=== PATIENT | female | born 1955 | race Caucasian/White ===

== ENCOUNTER 2017-07-18 05:42 | Day surgery (SDC) | payer OTHER ==
--- NOTE | 2017-07-18 06:01 | HP ---
DATE OF ADMISSION: 07/18/2017 HISTORY OF PRESENT ILLNESS: This is a 62-year-old female with dysuria recently. This happ ens off and on. Around s, she had a meat impaction. She had an EGD at [place], [place] to have the meat piece removed. The patient has had dysphagia to solid food off and on. The patient comes in for EGD evaluation because of dysphagia and recent diagnosis of esophageal stricture . ALLERGIES: CODEINE, DEMEROL, SULFA. ALLERGIC TO BLEACH. MEDICAL ILLNESSES: 1. Esophageal stricture. 2. Recent foreign body impaction of esophagus. 3. Hypertension. 4. Hyperlipidemia. 5. Chronic allergies. PHYSICAL EXAMINATION: VITAL SIGNS: Pulse is 70, blood pressure 130/80. HEENT: Conjunctivae clear. CARDIOVASCULAR SYSTEM: Within normal limits. ABDOMEN: Soft to palpate. No organomegaly. No tenderness. No masses. ADMITTING DIAGNOSES: Dysphagia, recent foreign body impaction. PLAN: Esophagogastroduodenoscopy and dilation.
--- NOTE | 2017-07-18 09:02 | OP ---
DATE OF PROCEDURE: 07/18/2017 SURGEON: Ryan Salazar M.D. OPERATIVE PROCEDURE: 1. Esophagogastroduodenoscopy. 2. Balloon dilation to stage 3. 3. 52-Sammarinese Gaytan dilator passed down without any resistance. PREOPERATIVE DIAGNOSES: Dysphagia, recent foreign body impaction a month ago. POSTOPERATIVE DIAGNOSES: 1. No esophagitis seen. The mucosa appeared normal. 2. Distal esophageal ring with intact mucosa. 3. Retained food material in the stomach and also in the duodenal bulb. 4. Gastric polyps appeared benign. PROCEDURE IN DETAIL: The patient was placed on her left lateral position and was given sedation by the Anesthesia Department. A Pentax video gastroscope under direct vision was passed down the oropharynx, past the gastroesophageal junction, into the stomach. The vocal cords appeared healthy. The esophageal mucosa appeared normal throughout the esophagus. The patient had no definite esophageal narrowing. She does have a distal esophageal ring appears wide open. The scope was advanced down without difficulty. Retroflexion failed to show any lesions in the fundus or cardia. She had multiple small gastric polyps over the fundus and greater curvature and gastric body. She had retained food material after overnight fasting. The gastric antrum, no pathology seen. The pylorus was wide open. The scope was advanced into the duodenal bulb that showed some retained food material and the scope could not be advanced into the descending duodenum. The scope was carefully withdrawn back to the GE junction. Again, examination does not show definite narrowing. A Bard balloon size 15-18 mm was placed in the GE junction and inflated to stage I to3 for 30 seconds and to stage II for another 2 minutes. However, the balloon can be traversed back and forth across the GE junction without any difficulty. The balloon was inflated to stage III, was brought across the GE junction without difficulty. The balloon and the scope removed. A 52-Sammarinese Gaytan dilator was passed down with no resistance. The patient was rescoped again There was friability and mild oozing of blood in the GE junction noted . The stomach was decompressed and the scope removed. DISCHARGE PLANNING: This is a 62-year-old female with a history of dysphagia to solid food off and on. She had an episode of meat impaction in 2016 and had to come to the ER and had EGD and removal of meat piece. The patient underwent EGD. The EGD did not show any stricture, it did show a ring. The ring is not tight. The balloon was inflated to stage III and brought across the GE junction without difficulty. Subsequently, she underwent Gaytan dilation with a 52-Sammarinese in diameter. The patient did well post procedure, and is being discharged home. DISCHARGE RECOMMENDATIONS: 1. The patient was advised to call me if she develops any chest discomfort, fever, melena or hematemesis. 2. Continue proton-pump inhibitor. 3. To come back to the clinic early next week. JUDITH
[2017-07-18] MEDS ORDERED: Lidocaine 1% PF 5 ML VIAL ONE (12:33)
== END 2017-07-18 08:45 | disposition home or self-care (01) ==
LOC: SDC 05:42
PROVIDERS: ATTEND Internal Medicine Gastroenterology
PROC: 0D748ZZ Dilation of Esophagogastric Junction, Via Natural or Artificial Opening Endoscopic (ICD-10-PCS; principal; 2017-07-18)
DX: K22.2 Esophageal obstruction (principal); R13.10 Dysphagia, unspecified; K31.7 Polyp of stomach and duodenum; I10 Essential (primary) hypertension; E78.5 Hyperlipidemia, unspecified; K21.9 Gastro-esophageal reflux disease without esophagitis; D68.51 Activated protein C resistance; Z88.8 Allergy status to other drugs, medicaments and biological substances; Z91.048 Other nonmedicinal substance allergy status; Z83.3 Family history of diabetes mellitus; Z82.49 Family history of ischemic heart disease and other diseases of the circulatory system; Z90.710 Acquired absence of both cervix and uterus; Z90.12 Acquired absence of left breast and nipple; Z98.890 Other specified postprocedural states

== ENCOUNTER 2019-09-11 05:44 | Day surgery (SDC) | payer OTHER ==
[2019-09-10 09:33] VITALS: BMI 28.0
[2019-09-11] MEDS ORDERED: Thrombin 5000 UNITS/5 ML VIAL ONE (06:10)
[2019-09-11] MEDS ORDERED: Lidocaine 2% Jelly 5 ML TUBE ONE (06:32)
[2019-09-11] MEDS ORDERED: Fentanyl 100 MCG/2 ML VIAL ONE ×4 (06:32→08:59)
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
[2019-09-11] MEDS ORDERED: Promethazine HCl 25 MG/ML VIAL ONE ×2 (07:31→08:42)
[2019-09-11] MEDS ORDERED: Ketorolac Tromethamine 30 MG/ML VIAL ONE (10:02)
[2019-09-11] MEDS ORDERED: Dexamethasone 20 MG/5 ML VIAL ONE (10:02)
[2019-09-11] MEDS ORDERED: Rocuronium Bromide 10 MG/ML (10ML VIAL) ONE (10:02)
[2019-09-11] MEDS ORDERED: Lidocaine 1% PF 5 ML VIAL ONE (10:02)
[2019-09-11] MEDS ORDERED: EPHEDRINE 25 MG/5 ML SYRINGE ONE (10:02)
[2019-09-11] MEDS ORDERED: PROPOFOL 200 MG/20 ML VIAL ONE (10:02)
[2019-09-11] MEDS ORDERED: Ondansetron PF 4 MG/2 ML Vial ONE (10:02)
[2019-09-11] MEDS ORDERED: Glycopyrrolate 0.2 MG/ML 5 ML SYRINGE ONE (10:02)
--- NOTE | 2019-09-11 10:05 | OP ---
DATE OF PROCEDURE: 09/11/2019 PATTERN ATTENDANT: José Miguel Guzmán PA-C INDICATION: Pain. DIAGNOSIS: Cervical radiculopathy. PROCEDURE PERFORMED: Anterior cervical diskectomy and fusion, C6-C7. ANESTHESIA: General. DESCRIPTION OF PROCEDURE: The patient was brought into the operating room and placed under general anesthesia. She was placed on table in a supine position. A transverse incision was planned over the lateral aspect of the neck on the right. After prepping and draping and after an appropriate operative pause, the incision was created. The underlying platysma muscle was identified and incised. A blunt tissue plane anterior to the sternocleidomastoid muscle was used to gain access to the prevertebral space. Self-retaining retractors were placed in the wound for optimal exposure. After confirming the appropriate level with C-arm fluoroscopy, an annulotomy was performed at the C6-C7 disk space. All disk material as well as anterior and posterior osteophytes were removed. After decompressing the C6-C7 segment, a 7-mm lordotic PEEK cage packed with allograft and autograft material was placed in the interbody space. An anterior cervical plate was then fashioned in front of the spine and secured with a total of 4 fixed screws. Midline and lateral structures were inspected and found to be free from significant trauma. The wound was irrigated. Hemostasis was maintained throughout. The wound was then closed in anatomic layers and a pressure dressing was applied. There were no known procedural complications. Job ID: [id number]
== END 2019-09-11 12:00 | disposition home or self-care (01) ==
LOC: SDC 05:44
PROVIDERS: ATTEND Neurological Surgery
PROC: 0RT30ZZ Resection of Cervical Vertebral Disc, Open Approach (ICD-10-PCS; principal; 2019-09-11)
PROC: 0RG10A0 Fusion of Cervical Vertebral Joint with Interbody Fusion Device, Anterior Approach, Anterior Column, Open Approach (ICD-10-PCS; principal; 2019-09-11)
DX: M48.02 Spinal stenosis, cervical region (principal); M54.12 Radiculopathy, cervical region; I10 Essential (primary) hypertension; K21.9 Gastro-esophageal reflux disease without esophagitis; Z79.899 Other long term (current) drug therapy; Z88.5 Allergy status to narcotic agent; Z91.048 Other nonmedicinal substance allergy status
CPT/HCPCS: 76000; C1713; C1776; J0690; J1100; J1885; J2001; J2405; J2550; J2704; J3010

== ENCOUNTER 2021-04-27 12:01 | Emergency (ER) | payer MEDICARE ==
[2021-04-27 13:38] LABS: #Basophils 0.1 thou/uL (0.0-0.2); #Eosinphils 0.2 thou/uL (0.0-0.7); #Lymphocytes 2.1 thou/uL (1.20-3.40); #Monocytes 0.6 thou/uL (0.11-0.59); #Neutrophils 3.9 thou/uL (1.40-6.50); %Basophils 0.9 % (0.0-1.0); %Eosinophils 2.8 % (0.0-10.0); %Lymphocytes 30.6 % (21.0-51.0); %Monocytes 8.2 % (0.0-10.0); %Neutrophils 57.4 % (42.0-75.0); Hemoglobin 14.9 g/dL (12.0-16.0); Mean Corpuscular HGB CONC 33.8 g/dL (32.0-36.0); Mean Corpuscular Hemoglobin 30.6 pg (27.0-31.0); Mean Corpuscular Volume 90.6 fL (78.0-98.0); Mean Platelet Volume 8.1 fL (7.4-10.4); Platelet Count 267 thou/uL (130-400); RBC Distribution Width 11.8 % (11.5-14.5); Red Blood Cell (RBC) Count 4.88 mill/uL (4.20-5.40); White Blood Cell (WBC) Count 6.8 thou/uL (4.8-10.8)
[2021-04-27 14:00] LABS: ALT (SGPT) 21 U/L (8-55); AST (SGOT) 16 U/L (5-34); Alkaline Phosphatase 79 U/L (40-110); Anion Gap 13 mmol/L (10-20); BUN (Urea Nitrogen) 11 mg/dL (9.8-20.1); Bilirubin, Total 0.3 mg/dL (0.2-1.2); Calc. Creatinine Clearance 0 mL/min (70-130); Calcium 9.3 mg/dL (7.8-10.44); Carbon Dioxide 25 mmol/L (23-31); Chloride 107 mmol/L (98-107); Globulin 2.8 g/dL (2.4-3.5); Glucose 123 mg/dL (80-115); Potassium 3.6 mmol/L (3.5-5.1); Protein, Total 6.8 g/dL (5.8-8.1); Sodium 141 mmol/L (136-145)
[2021-04-27] MEDS ORDERED: Aspirin Chewable 81 MG TAB ONE (15:13)
== END 2021-04-27 16:08 | disposition short-term general hospital (02) ==
LOC: ERS 12:01
DX: R06.02 Shortness of breath (principal)
CPT/HCPCS: 36415; 71045; 80053; 83880; 84484; 85025; 93005